=== PATIENT | female | born 1940 | race Caucasian/White ===

== ENCOUNTER → 2017-04-05 | Outpatient (CLI) | payer MEDICARE ==
[~2017-04-05] MED LIST: AMLO5TAB2 PO; ASPI-515 PO; ATEN50TA41 PO; CHLO5CAP2 PO; CHLORDIAZEPOXIDE PO; CHOL2000 PO; CIPR250T27 PO; CLOP75TA52 PO; ESTR0.5T PO; ESTRADIOL PO; FLUO20CA8 PO; FLUO20TA25 PO; LOSA100T6 PO; NITR0.4T SL; OMEP-110 PO; SIMV40TA3 PO; SYMBICORT INH; TICA90TA PO; TOPI25TA32 PO; VIT1CAPS10 PO
== END | disposition home or self-care (01) ==
LOC: RAD 14:35
PROVIDERS: ATTEND Family Medicine
DX: G31.89 Other specified degenerative diseases of nervous system (principal); H05.231 Hemorrhage of right orbit; Z91.81 History of falling
CPT/HCPCS: 70450

== ENCOUNTER → 2017-05-08 | Outpatient (CLI) | payer MEDICARE ==
[~2017-05-08] MED LIST changes: +ATOR40TA PO; +CLIN300C8 PO; +DOXY100C2 PO; +IPRA3AMP NPPB; +PRED20TA PO
== END ==
LOC: CFH 13:46
PROVIDERS: ATTEND Family Medicine
DX: M19.042 Primary osteoarthritis, left hand (principal)

== ENCOUNTER → 2017-05-31 | Outpatient (CLI) | payer MEDICARE | END | disposition home or self-care (01) | LOC: CFH 13:24 | PROVIDERS: ATTEND Internal Medicine Cardiovascular Disease | DX: I08.2 Rheumatic disorders of both aortic and tricuspid valves (principal); I25.10 Atherosclerotic heart disease of native coronary artery without angina pectoris; Z95.5 Presence of coronary angioplasty implant and graft; Z87.891 Personal history of nicotine dependence | CPT/HCPCS: 93306 ==

== ENCOUNTER → 2017-06-18 | Outpatient (CLI) | payer MEDICARE | END | disposition home or self-care (01) | LOC: CVU 12:10 | PROVIDERS: ATTEND Physician Assistant | DX: I65.23 Occlusion and stenosis of bilateral carotid arteries (principal); I10 Essential (primary) hypertension | CPT/HCPCS: 93880 ==

== ENCOUNTER 2018-11-09 22:58 | Emergency (ER) | payer MEDICARE ==
[~2018-11-09] VITALS: Ht 154.9 cm; Wt 66.0 kg
[~2018-11-09 22:58] MED LIST changes: +AMLO-150 PO; -AMLO5TAB2 PO; -IPRA3AMP NPPB; +IPRA3AMP30 NPPB; +LOSA100T14 PO; -LOSA100T6 PO; +OCUVITE SOFTGE1 EACH PO; -VIT1CAPS10 PO
[2018-11-09] MEDS ORDERED: OXYMETAZOLINE NASAL SPRAY 0.05%,30ML ONE (23:12)
[2018-11-09] MEDS ORDERED: OXYMETAZOLINE NASAL SPRAY 0.05%,30ML NAS ONE (23:30)
[2018-11-09 23:45] VITALS: BP 95/41
--- NOTE | 2018-11-09 23:48 | NUR ---
PT RESTING IN CHAIR WITH FEET UP. SON AT BEDSIDE. BLEEDING SEEMS UNDER CONTROL S/P AFRIN WITH CONT PRESSURE.
== END 2018-11-10 00:54 | disposition home or self-care (01) ==
LOC: ED 23:06
DX: R04.0 Epistaxis (principal); I11.9 Hypertensive heart disease without heart failure; J44.9 Chronic obstructive pulmonary disease, unspecified; Z98.61 Coronary angioplasty status
CPT/HCPCS: 99283

== ENCOUNTER → 2020-08-26 | Outpatient (CLI) | payer MEDICARE ==
[~2020-08-26] MED LIST changes: -ASPI-515 PO; +ASPI-963 PO; -CLIN300C8 PO; +CLIN300C9 PO; +FLUO20CA23 PO; -FLUO20CA8 PO; -NITR0.4T SL; +NITR0.4T41 SL; +SIMV40TA20 PO; -SIMV40TA3 PO
[2020-08-26 10:27] LABS: BASOPHILS % (AUTO) 1 % (0-1); EOSINOPHILS % (AUTO) 1 % (1-7); LYMPHOCYTES % (AUTO) 16 % (22-44); MEAN CORPUSCULAR HEMOGLOBIN 31.6 pg (27.0-34.8); MEAN CORPUSCULAR HGB CONC 33.2 g/dL (32.4-35.8); MONOCYTES % (AUTO) 7 % (2-9); NEUTROPHILS % (AUTO) 76 % (42-75); PLATELET COUNT 179 x10^3/uL (130-400); RED BLOOD COUNT 4.25 x10^6/uL (3.82-5.3); RED CELL DISTRIBUTION WIDTH 14.2 % (9.6-15.2)
[2020-08-26 10:34] LABS: ALANINE AMINOTRANSFERASE 43 U/L (12-78); ALBUMIN 3.5 g/dL (3.4-5.0); ANION GAP 6 mmol/L (5-15); CALCIUM 10.3 mg/dL (8.5-10.1); CHLORIDE 107 mmol/L (98-107); CREATININE 1.07 mg/dL (0.55-1.02)
[2020-08-26 10:35] LABS: MD NO
[2020-08-26 10:38] LABS: ALKALINE PHOSPHATASE 84 U/L (45-117); BILIRUBIN,TOTAL 0.5 mg/dL (0.2-1.0); CHOL/HDL RATIO 2.4; CHOLESTEROL, TOTAL 198 mg/dL (140-239); HDL CHOL % 42 % (28-40); HDL CHOLESTEROL (DIRECT) 84 mg/dL (40-60); LDL CHOLESTEROL,CALCULATED 80 mg/dL (54-169); T4 (THYROXINE) 7.2 mcg/dL (4.8-13.9); TOTAL PROTEIN 6.6 g/dL (6.4-8.2); TRIGLYCERIDES 170 mg/dL (50-200); VLDL CHOLESTEROL 34 mg/dL (0-25)
[2020-08-26 11:19] LABS: MICROSCOPIC INDICATED
== END | disposition home or self-care (01) ==
LOC: LAB 09:51
PROVIDERS: ATTEND Internal Medicine Cardiovascular Disease
DX: I12.9 Hypertensive chronic kidney disease with stage 1 through stage 4 chronic kidney disease, or unspecified chronic kidney disease (principal); N18.2 Chronic kidney disease, stage 2 (mild); I25.10 Atherosclerotic heart disease of native coronary artery without angina pectoris; H34.10 Central retinal artery occlusion, unspecified eye; H34.13 Central retinal artery occlusion, bilateral; I34.0 Nonrheumatic mitral (valve) insufficiency; J18.9 Pneumonia, unspecified organism; L03.114 Cellulitis of left upper limb; R06.02 Shortness of breath; R55 Syncope and collapse; R79.9 Abnormal finding of blood chemistry, unspecified; E78.5 Hyperlipidemia, unspecified
CPT/HCPCS: 36415; 80053; 80061; 81001; 83036; 84436; 84481; 85025

== ENCOUNTER 2020-10-03 12:30 | Outpatient (CLI) | payer MEDICARE | END 2020-10-03 23:59 | disposition home or self-care (01) | LOC: CVU 12:30 | PROVIDERS: ATTEND Internal Medicine Cardiovascular Disease | DX: I65.23 Occlusion and stenosis of bilateral carotid arteries (principal); R55 Syncope and collapse | CPT/HCPCS: 93880 ==